=== PATIENT | female | born 1950 | race Caucasian/White ===

== ENCOUNTER → 2017-08-31 | Outpatient (CLI) | payer MEDICARE, OTHER ==
[2015-07-10 21:45] VITALS: BP 131/73
[~2017-08-31] MED LIST: ATOR20TA58 PO; BUPR-192 PO; CA C1TAB38 PO; CHOL5000 PO; DOCU50CA9 PO; FURO80TA3 PO; HYOS0.3715 PO; IOHEXOL 240 MG/ML 50ML VIAL. ONE; IOHEXOL 300 MG/ML 75 ML VIAL. IV ONE; LEVO75TA5 PO; LORA0.5T PO; METF10002 PO; METH10TA2 PO; NEBI20TA2 PO; POTA20TA12 PO; TIZA4TAB PO; TRAZ150T49 PO
[2017-08-31 13:33] LABS: CREATININE 1.1 mg/dL (0.6-1.0)
--- NOTE | 2017-08-31 14:55 | RAD ---
CT of the abdomen and pelvis with contrast, 08/31/2017: History: Abdominal pain Multidetector CT imaging was performed following oral and IV administration of contrast. The gallbladder is surgically absent. There is no evidence of a hepatic mass or bile duct dilatation. No pancreatic abnormality is detected. The spleen is of normal size. There is minimal bilateral renal cortical scarring. The kidneys show no evidence of obstruction or mass. No adrenal abnormality is detected. There is moderate aortoiliac calcific plaquing without evidence of aneurysm. There is a mildly enlarged left paraaortic lymph node just below the level of the renal vessels. It measures 14 mm in short axis dimension. It was of normal size on the 01/02/2010 study. A mildly enlarged portacaval lymph node measures 14 mm in width. It has increased slightly in size since the previous study at which time it measured 11 mm. No definite mesenteric adenopathy is seen. No pelvic or inguinal adenopathy is seen. The uterus is surgically absent. There is a moderate amount stool throughout the colon. The bowel loops are not dilated. The appendix is not visualized. No dilated appendix or pericecal inflammatory process is seen. No free air or significant free fluid is evident in the abdomen or pelvis. IMPRESSION: 1. Increased stool throughout the colon. 2. Mildly enlarged periaortic and portacaval lymph nodes are now evident. PQRS Compliance Statement: One or more of the following individualized dose reduction techniques were utilized for this examination: 1. Automated exposure control 2. Adjustment of the mA and/or kV according to patient size 3. Use of iterative reconstruction technique
== END | disposition home or self-care (01) ==
LOC: CT 12:56
PROVIDERS: ATTEND Family Medicine
DX: R10.84 Generalized abdominal pain (principal); Z90.49 Acquired absence of other specified parts of digestive tract
CPT/HCPCS: 36415; 74177; 82565; Q9966; Q9967

== ENCOUNTER 2018-02-02 13:43 | Emergency (ER) | payer MEDICARE, OTHER ==
[~2018-02-02] VITALS: Ht 165.1 cm; Wt 100.7 kg
[~2018-02-02 13:43] MED LIST changes: -IOHEXOL 240 MG/ML 50ML VIAL. ONE; -IOHEXOL 300 MG/ML 75 ML VIAL. IV ONE; -METF10002 PO; +METF10003 PO
[2018-02-02 14:02] VITALS: BP 142/64
--- NOTE | 2018-02-02 14:25 | ED.ADGEN ---
Past History Past Medical History: Anxiety, Bipolar, Depression, Fibromyalgia, Hypertension , Hypothyroid, Other Past Surgical History: No Surgical History Alcohol Use: None Drug Use: None Adult General Chief Complaint Chief Complaint Right leg pain and swelling HPI HPI Patient is a 67-year-old female with history of fibromyalgia, chronic kidney disease and hypertension who presents with right leg pain and swelling earlier this morning which has since resolved. Patient states she could see her muscles fasciculate and her calf cramp. Pain was rated moderate to severe and radiated to hamstring region. Patient denies history of frequent cramps, low magnesium her potassium levels. Does report 7 lb weight gain in the past week. No chest pain or shortness of breath. No change of urinary output. Recent travel greater than 8 hours by car the past 6 weeks. No history of DVT or PE. No other acute symptoms or complaints.[] Review of Systems Review of Systems Review symptoms as per history of present illness. All other review symptoms are negative. All other systems were reviewed and found to be within normal limits, except as documented in this note. Allergies Allergies Allergies Coded Allergies Type Severity Reaction Last Updated Verified Sulfa (Sulfonamide Antibiotics) Allergy Intermediate 03/05/14 Yes Physical Exam Physical Exam Constitutional: Well developed, well nourished, no acute distress, non-toxic appearance. [] HENT: Normocephalic, atraumatic, bilateral external ears normal, oropharynx moist, no oral exudates, nose normal. [] Eyes: PERRLA, EOMI, conjunctiva normal, no discharge. [] Neck: Normal range of motion, no tenderness, supple, no stridor. [] Cardiovascular:Heart rate regular rhythm, no murmur [] Lungs & Thorax: Bilateral breath sounds clear to auscultation [] Abdomen: Bowel sounds normal, soft, no tenderness. [] Skin: Warm, dry, no erythema, no rash. [] Back: No tenderness. [] Extremities: No tenderness, negative Homans sign. [] Neurologic: Alert and oriented X 3, normal motor function, normal sensory function. [] Psychologic: Affect normal, judgement normal, mood normal. [] Current Patient Data Vital Signs Vital Signs Date Time Temp Pulse Resp B/P (MAP) Pulse Ox O2 Delivery O2 Flow Rate FiO2 02/02/18 14:02 97.6 86 18 98 Room Air Lab Results Laboratory Tests Test 02/02/18 14:14 02/02/18 15:35 White Blood Count 6.8 x10^3/uL (4.0-11.0) Red Blood Count 4.26 x10^6/uL (3.50-5.40) Hemoglobin 12.0 g/dL (12.0-15.5) Hematocrit 35.8 % (36.0-47.0) L Mean Corpuscular Volume 84 fL (79-100) Mean Corpuscular Hemoglobin 28 pg (25-35) Mean Corpuscular Hemoglobin Concent 34 g/dL (31-37) Red Cell Distribution Width 14.8 % (11.5-14.5) H Platelet Count 210 x10^3/uL (140-400) Neutrophils (%) (Auto) 60 % (31-73) Lymphocytes (%) (Auto) 27 % (24-48) Monocytes (%) (Auto) 6 % (0-9) Eosinophils (%) (Auto) 7 % (0-3) H Basophils (%) (Auto) 1 % (0-3) Neutrophils # (Auto) 4.0 x10^3uL (1.8-7.7) Lymphocytes # (Auto) 1.8 x10^3/uL (1.0-4.8) Monocytes # (Auto) 0.4 x10^3/uL (0.0-1.1) Eosinophils # (Auto) 0.4 x10^3/uL (0.0-0.7) Basophils # (Auto) 0.1 x10^3/uL (0.0-0.2) Urine Collection Type Void Urine Color Yellow Urine Clarity Hazy Urine pH 5.5 Urine Specific [place] 1.010 Urine Protein Neg (NEG-TRACE) Urine Glucose (UA) Neg mg/dL (NEG) Urine Ketones (Stick) Neg mg/dL (NEG) Urine Blood Neg (NEG) Urine Nitrite Neg (NEG) Urine Bilirubin Neg (NEG) Urine Urobilinogen Dipstick 0.2 mg/dL (0.2 mg/dL) Urine Leukocyte Esterase Trace (NEG) Urine RBC Rare /HPF (0-2) Urine WBC Rare /HPF (0-4) Urine Squamous Epithelial Cells Occ /LPF Urine Bacteria 0 /HPF (0-FEW) Sodium Level 134 mmol/L (136-145) L Potassium Level 4.4 mmol/L (3.5-5.1) Chloride Level 99 mmol/L (98-107) Carbon Dioxide Level 29 mmol/L (21-32) Anion Gap 6 (6-14) Blood Urea Nitrogen 21 mg/dL (7-20) H Creatinine 1.2 mg/dL (0.6-1.0) H Estimated GFR (Cockcroft-Gault) 45.1 BUN/Creatinine Ratio 18 (6-20) Glucose Level 261 mg/dL (70-99) H Calcium Level 9.6 mg/dL (8.5-10.1) Total Bilirubin 0.5 mg/dL (0.2-1.0) Aspartate Amino Transferase (AST) 41 U/L (15-37) H Alanine Aminotransferase (ALT) 41 U/L (14-59) Alkaline Phosphatase 76 U/L (46-116) YC-Stg-Z-Type Natriuretic Peptide 17 pg/mL (0-124) Total Protein 7.3 g/dL (6.4-8.2) Albumin 3.5 g/dL (3.4-5.0) Albumin/Globulin Ratio 0.9 (1.0-1.7) L D-Dimer ([place]) 0.60 mg/L (0.00-0.50) H EKG EKG EKG: Reviewed[] Radiology/Procedures Radiology/Procedures [CV ultrasound: Negative for DVT.] Course & Med Decision Making Course & Med Decision Making Pertinent Labs and Imaging studies reviewed. (See chart for details) [Pain/cramping this resolved prior to ED arrival. Patient with recent travel with positive d-dimer. Ultrasound negative for DVT. Suspect patient's fibromyalgia has possible cause of symptoms. Recommendations are continued supportive care with PCP follow-up.] Final Impression Final Impression [1. right leg pain] Dragon Disclaimer Dragon Disclaimer This electronic medical record was generated, in whole or in part, using a voice recognition dictation system. RAYMOND DEGROOT DO Feb 02, 2018 14:25
[2018-02-02 15:09] LABS: BASO # 0.1 x10^3/uL (0.0-0.2); BASO % 1 % (0-3); EOS # 0.4 x10^3/uL (0.0-0.7); EOS % 7 % (0-3); HEMATOCRIT 35.8 % (36.0-47.0); LYMPH # 1.8 x10^3/uL (1.0-4.8); LYMPH % 27 % (24-48); MEAN CORPUSCULAR HEMOGLOBIN 28 pg (25-35); MEAN CORPUSCULAR HGB CONC 34 g/dL (31-37); MEAN CORPUSCULAR VOLUME 84 fL (79-100); MONO # 0.4 x10^3/uL (0.0-1.1); MONO % 6 % (0-9); NEUT % 60 % (31-73); PLATELET COUNT 210 x10^3/uL (140-400); RED BLOOD COUNT 4.26 x10^6/uL (3.50-5.40); RED CELL DISTRIBUTION WIDTH 14.8 % (11.5-14.5); WHITE BLOOD COUNT 6.8 x10^3/uL (4.0-11.0)
[2018-02-02 15:29] LABS: BILIRUBIN,URINE NEG (NEG); CLARITY,URINE HAZY; COLOR,URINE YELLOW; GLUCOSE,URINE NEG (NEG); UROBILINOGEN,URINE 0.2 mg/dL (0.2 mg/dL)
[2018-02-02 15:30] LABS: BACTERIA,URINE 0 /HPF (0-FEW); NITRITE,URINE NEG (NEG); RBC,URINE RARE /HPF (0-2); SQUAMOUS EPITHELIAL CELL,UR OCC /LPF; WBC,URINE RARE /HPF (0-4)
[2018-02-02 15:32] LABS: ALBUMIN 3.5 g/dL (3.4-5.0); ALBUMIN/GLOBULIN RATIO 0.9 (1.0-1.7); CALCIUM 9.6 mg/dL (8.5-10.1); CREATININE 1.2 mg/dL (0.6-1.0); GFR 45.1; TOTAL BILIRUBIN 0.5 mg/dL (0.2-1.0); TOTAL PROTEIN 7.3 g/dL (6.4-8.2)
[2018-02-02 15:37] LABS: POTASSIUM 4.4 mmol/L (3.5-5.1)
--- NOTE | 2018-02-02 17:37 | RAD ---
Right lower extremity venous doppler ultrasound History: Right leg pain Comparison: None Findings: Multiple grayscale, color, and duplex spectral analysis sonographic images were acquired of the right lower extremity veins to evaluate for the presence of DVT. There is normal phasicity. Normal compression, color-flow, and augmentation is demonstrated from the right common femoral to the popliteal veins. There is normal color flow of the proximal profunda femoris vein. There is normal color flow of segments of the calf veins. Impression: 1. There is no evidence of deep venous thrombosis from the right common femoral to popliteal veins. Electronically signed by: Juan Mccauley MD (02/02/2018 5:34 PM) [id number]
--- NOTE | 2018-02-02 19:39 | EKG ---
[address] [address] Test Date: 2018-02-02 Test Time: 14:23:11 Pat Name: LENA CLARK Department: Room: Gender: F [employer] Driver: NANDINI : 1950 Requested By: RAYMOND DEGROOT Order Number: [id number] Reading MD: Roberto Solo MD Measurements Intervals [place] Rate: 80 P: 64 DC: 136 QRS: 1 QRSD: 94 T: 48 QT: 370 QTc: 430 Interpretive Statements SINUS RHYTHM Electronically Signed On 02-04-2018 9:29:29 CDT by Roberto Solo MD
== END 2018-02-02 17:42 | disposition home or self-care (01) ==
LOC: ER 13:43
DX: M79.604 Pain in right leg (principal); R22.41 Localized swelling, mass and lump, right lower limb; F41.9 Anxiety disorder, unspecified; F31.9 Bipolar disorder, unspecified; M79.7 Fibromyalgia; I10 Essential (primary) hypertension; E03.9 Hypothyroidism, unspecified; Z88.2 Allergy status to sulfonamides
CPT/HCPCS: 36415; 80053; 81001; 83880; 85025; 85379; 87086; 93005; 93971; 99285-25

== ENCOUNTER → 2020-10-21 | Outpatient (CLI) | payer MEDICARE ==
[~2020-10-21] MED LIST changes: -BUPR-192 PO; +BUPR150T21 PO; -METF10003 PO; +METF10007 PO; -TIZA4TAB PO; +TIZA4TAB2 PO
[2020-10-21 18:57] LABS: BASO % 0 % (0-3); EOS # 0.4 x10^3/uL (0.0-0.7); EOS % 4 % (0-3); HEMATOCRIT 36.1 % (36.0-47.0); HEMOGLOBIN 11.6 g/dL (12.0-15.5); LYMPH # 3.5 x10^3/uL (1.0-4.8); LYMPH % 29 % (24-48); MEAN CORPUSCULAR HEMOGLOBIN 28 pg (25-35); MEAN CORPUSCULAR HGB CONC 32 g/dL (31-37); MEAN CORPUSCULAR VOLUME 86 fL (79-100); MONO # 0.5 x10^3/uL (0.0-1.1); MONO % 4 % (0-9); NEUT # 7.6 x10^3uL (1.8-7.7); NEUT % 63 % (31-73); PLATELET COUNT 254 x10^3/uL (140-400); RED BLOOD COUNT 4.19 x10^6/uL (3.50-5.40); RED CELL DISTRIBUTION WIDTH 15.3 % (11.5-14.5); WHITE BLOOD COUNT 12.1 x10^3/uL (4.0-11.0)
[2020-10-21 19:16] LABS: ALBUMIN 3.4 g/dL (3.4-5.0); ALBUMIN/GLOBULIN RATIO 0.8 (1.0-1.7); CALCIUM 9.4 mg/dL (8.5-10.1); CREATININE 1.1 mg/dL (0.6-1.0); GFR 49.4; POTASSIUM 3.4 mmol/L (3.5-5.1); TOTAL BILIRUBIN 0.4 mg/dL (0.2-1.0); TOTAL PROTEIN 7.5 g/dL (6.4-8.2)
[2020-10-23 00:13] LABS: HEMOGLOBIN A1C 5.9 % (4.8-5.6)
== END ==
LOC: LAB 17:10
PROVIDERS: ATTEND Family Medicine
DX: E11.9 Type 2 diabetes mellitus without complications (principal); E78.5 Hyperlipidemia, unspecified
CPT/HCPCS: 80053; 80061; 82306; 83036; 85025

== ENCOUNTER → 2020-10-21 | Outpatient (CLI) | payer MEDICARE ==
[2020-10-21 19:00] LABS: HEMATOCRIT 36.1 % (36.0-47.0); HEMOGLOBIN 11.6 g/dL (12.0-15.5)
[2020-10-21 19:33] LABS: ALBUMIN 3.4 g/dL (3.4-5.0); CALCIUM 9.4 mg/dL (8.5-10.1); CREATININE 1.1 mg/dL (0.6-1.0); GFR 49.4
[2020-10-21 19:34] LABS: PHOSPHORUS 2.8 mg/dL (2.6-4.7); POTASSIUM 3.4 mmol/L (3.5-5.1)
[2020-10-22 12:08] LABS: MICROALB RD UR 22.2 ug/mL (Not Estab.)
[2020-10-22 18:07] LABS: CALCIUM PTH 9.7 mg/dL (8.7-10.3); CREATININE PTH 0.99 mg/dL (0.57-1.00); PTH INTACT 45 pg/mL (15-65)
[2020-10-22 18:49] LABS: CREATININE,RANDOM URINE 105.5 mg/dL (Not Establ.)
== END ==
LOC: LAB 17:16
PROVIDERS: ATTEND Internal Medicine Nephrology
DX: I12.9 Hypertensive chronic kidney disease with stage 1 through stage 4 chronic kidney disease, or unspecified chronic kidney disease (principal); N18.30 Chronic kidney disease, stage 3 unspecified; E11.29 Type 2 diabetes mellitus with other diabetic kidney complication; E83.52 Hypercalcemia; Z79.84 Long term (current) use of oral hypoglycemic drugs; Z68.35 Body mass index [BMI] 35.0-35.9, adult
CPT/HCPCS: 80069; 82043; 82306; 82570; 83970; 84156; 85014; 85018

== ENCOUNTER → 2021-04-14 | Outpatient (CLI) | payer MEDICARE ==
[~2021-04-14] MED LIST changes: +METH-570 PO; -METH10TA2 PO
[2021-04-14 15:19] LABS: BASO # 0.1 x10^3/uL (0.0-0.2); BASO % 1 % (0-3); EOS # 0.4 x10^3/uL (0.0-0.7); EOS % 3 % (0-3); HEMATOCRIT 38.9 % (36.0-47.0); HEMOGLOBIN 12.6 g/dL (12.0-15.5); LYMPH # 3.3 x10^3/uL (1.0-4.8); LYMPH % 28 % (24-48); MEAN CORPUSCULAR HEMOGLOBIN 28 pg (25-35); MEAN CORPUSCULAR HGB CONC 32 g/dL (31-37); MEAN CORPUSCULAR VOLUME 87 fL (79-100); MONO # 0.7 x10^3/uL (0.0-1.1); MONO % 6 % (0-9); NEUT # 7.3 x10^3uL (1.8-7.7); NEUT % 62 % (31-73); PLATELET COUNT 283 x10^3/uL (140-400); RED CELL DISTRIBUTION WIDTH 15.4 % (11.5-14.5); WHITE BLOOD COUNT 11.7 x10^3/uL (4.0-11.0)
[2021-04-14 15:36] LABS: ALBUMIN 3.7 g/dL (3.4-5.0); ALBUMIN/GLOBULIN RATIO 0.8 (1.0-1.7); CALCIUM 10.1 mg/dL (8.5-10.1); CREATININE 1.2 mg/dL (0.6-1.0); GFR 44.7; POTASSIUM 3.5 mmol/L (3.5-5.1); TOTAL BILIRUBIN 0.5 mg/dL (0.2-1.0); TOTAL PROTEIN 8.2 g/dL (6.4-8.2)
[2021-04-15 14:44] LABS: FREE T4 0.96 ng/dL (0.76-1.46); THYROID STIM HORMONE (TSH) 0.849 uIU/mL (0.358-3.740)
[2021-04-16 01:07] LABS: HEMOGLOBIN A1C 6.1 % (4.8-5.6)
== END ==
LOC: LAB 14:24
PROVIDERS: ATTEND Physician Assistant
DX: E11.29 Type 2 diabetes mellitus with other diabetic kidney complication (principal); I10 Essential (primary) hypertension; E78.5 Hyperlipidemia, unspecified
CPT/HCPCS: 36415; 80053; 80061; 83036; 84439; 84443; 85025